=== PATIENT | male | born 1970 | race Caucasian/White ===

== ENCOUNTER 2019-06-16 10:31 | Emergency (ER) | payer BC ==
[~2019-06-16 10:31] MED LIST: CITALOPRAM10 MG PO; HYDROCODONE BIT1 T11 PO; KEFLEX500 MG PO
[2019-06-16 11:13] LABS: BASO # 0.1 10*3/uL (0.0-0.1); BASO % 0.6 % (0.0-1.0); EOS % 0.1 % (1.0-4.0); HEMATOCRIT 44.4 % (42.0-52.0); HEMOGLOBIN 14.6 g/dl (14.0-18.0); LYMPH # 0.6 10*3/uL (1.3-4.4); LYMPH % 6.3 % (27.0-41.0); MEAN CELL VOLUME 88.4 fl (80.0-94.0); MEAN CORPUSCULAR HGB 29.1 pg (27.0-31.0); MEAN CORPUSCULAR HGB CONC 32.9 g/dl (33.0-37.0); MEAN PLATELET VOLUME 10.7 fl (9.6-12.3); MONO # 1.2 10*3/uL (0.1-1.0); MONO % 12.1 % (3.0-9.0); NEUT # 7.7 10*3/uL (2.3-7.9); NEUT % 80.6 % (47.0-73.0); PLATELET COUNT AUTOMATED 256 10*3/uL (130-400); RED BLOOD COUNT 5.02 10*6/uL (4.50-5.90); RED CELL DISTRI WIDTH 12.5 % (0-14.5); WHITE BLOOD COUNT 9.5 10*3/uL (4.8-10.8)
[2019-06-16 11:29] LABS: ALBUMIN 3.5 gm/dl (3.1-4.5); ALKALINE PHOSPHATASE 40 U/L (45-117); BUN 12 mg/dl (7-24); CHLORIDE 105 mmol/L (98-107); POTASSIUM 4.1 mmol/L (3.5-5.1); SGOT/AST 22 IU/L (3-35); SGPT/ALT 34 U/L (12-78); SODIUM 138 mmol/L (136-145); TOTAL PROTEIN 7.8 gm/dL (6.4-8.2)
[2019-06-16 12:57] LABS: BACTERIA 2+; BILIRUBIN NEGATIVE (NEGATIVE); BLOOD 1+ (NEGATIVE); CLARITY SL CLOUDY (CLEAR); COLOR YELLOW (YELLOW); EPITHELIAL CELLS 0-2; GLUCOSE NEGATIVE (NEGATIVE); KETONE NEGATIVE (NEGATIVE); LEUKO ESTERASE NEGATIVE (NEGATIVE); NITRITE NEGATIVE (NEGATIVE); RBC 16-20 rbc/hpf (0-2); UROBILINOGEN 0.2 E.U./dl (0.2-1.0)
[2019-06-16 12:58] LABS: MUCOUS 2+
[2019-06-16] MEDS ORDERED: VIBRAMYCIN100 MG PO (13:03)
[2019-06-16] MEDS ORDERED: PREDNISONE20 M1 PO (13:03)
== END 2019-06-16 13:04 | disposition home or self-care (01) ==
LOC: ED 10:31
PROVIDERS: Nurse Practitioner Family
DX: J20.9 Acute bronchitis, unspecified (principal); Z79.899 Other long term (current) drug therapy